=== PATIENT | female | born 1980 | race Caucasian/White ===

== ENCOUNTER 2023-10-19 16:28 | Emergency (ER) | payer OTHER ==
[~2023-10-19] VITALS: Ht 167.6 cm; Wt 149.9 kg
[2023-10-19 16:38] VITALS: TEMP 98.1; O2SAT 98
[2023-10-19] MEDS ORDERED: LOSARTAN POTASS25 MG PO (16:49)
[2023-10-19 17:06] VITALS: PULSE 95; RESP 18
[2023-10-19] MEDS: TETRACAINE HCL 0.5% OPTH SOLN 4 ML BTL OP ONE (17:22)
[2023-10-19] MEDS: FLUORESCEIN SOD(OPTH) 1 MG STRP OP ONE (17:22)
[2023-10-19] MEDS ORDERED: SULFACETAMIDE S15 ML OS (17:33)
[2023-10-19] MEDS ORDERED: ACULAR5 ML OS (17:35)
[2023-10-19] MEDS ORDERED: LASIX40 MG PO (17:41)
== END 2023-10-19 17:48 | disposition home or self-care (01) ==
LOC: FSED 16:32
DX: H57.12 Ocular pain, left eye (principal); H10.12 Acute atopic conjunctivitis, left eye; I10 Essential (primary) hypertension; R21 Rash and other nonspecific skin eruption; E66.01 Morbid (severe) obesity due to excess calories; Z68.43 Body mass index [BMI] 50.0-59.9, adult
CPT/HCPCS: 99283